=== PATIENT | female | born 1930 | race Caucasian/White ===

== ENCOUNTER 2017-01-10 16:33 | Emergency (ER) | payer OTHER ==
[~2017-01-10] VITALS: Ht 149.9 cm; Wt 42.5 kg
[~2017-01-10 16:33] MED LIST: NICOTINE PATCH1 EAC2 TD; PERCOCET 5/31 TABLET PO
[2017-01-10 18:46] LABS: ADD MIUA? YES; BILIRUBIN NEGATIVE; BLOOD SMALL; COLOR YELLOW ((YELLOW)); GLUCOSE (STRIP) NEGATIVE; KETONES NEGATIVE; LEUKOCYTES TRACE; NITRITE NEGATIVE; PROTEIN (STRIP) NEGATIVE; SPECIFIC GRAVITY 1.011 (1.000-1.030); UROBILINOGEN 0.2 MG/DL (0.2-1.0)
[2017-01-10 18:54] LABS: BACTERIA NONE SEEN /HPF; EPITHELIAL CELLS 1+ /HPF; MUCUS TRACE /LPF; UCUL ADDED? NO; WHITE BLOOD CELLS 0-5 /HPF (0-5)
[2017-01-10] MEDS ORDERED: NORCO 5/3251 TABLET PO (20:18)
[2017-01-10 20:38] VITALS: BP 145/65
== END 2017-01-10 20:41 | disposition home or self-care (01) ==
LOC: EME 16:33
DX: M54.5 Low back pain (principal); Z91.041 Radiographic dye allergy status; F17.200 Nicotine dependence, unspecified, uncomplicated
CPT/HCPCS: 72110; 81003; 99281; 99284; J2270